=== PATIENT | female | born 1985 | race Two or more races ===

== ENCOUNTER 2018-06-13 08:50 | Emergency (ER) | payer SELFPAY ==
[~2018-06-13] VITALS: Ht 165.1 cm; Wt 76.0 kg
[2018-06-13] MEDS ORDERED: KETOROLAC 60MG/2ML VIAL IM ONE (10:00)
[2018-06-13 10:30] VITALS: BP 111/79
== END 2018-06-13 12:00 | disposition home or self-care (01) ==
LOC: ER 08:50
DX: S16.1XXA Strain of muscle, fascia and tendon at neck level, initial encounter (principal); S46.912A Strain of unspecified muscle, fascia and tendon at shoulder and upper arm level, left arm, initial encounter; V43.52XA Car driver injured in collision with other type car in traffic accident, initial encounter; Y93.89 Activity, other specified; Y92.488 Other paved roadways as the place of occurrence of the external cause
CPT/HCPCS: 73030; 81025; 96372; 99284; J1885; J7030